=== PATIENT | female | born 1975 | race Caucasian/White ===

== ENCOUNTER 2018-05-21 18:54 | Emergency (ER) | payer OTHER ==
[~2018-05-21] VITALS: Ht 152.4 cm; Wt 113.4 kg
[~2018-05-21 18:54] MED LIST: IBUPROFEN800 MG PO; LASIX20 MG PO; METFORMIN HCL500 MG; NORVASC5 MG; ULTRAM50 MG PO; ZESTRIL10 M1 PO; ZITHROMAX TRI-500 MG PO
[2018-05-21] MEDS ORDERED: JANUVIA50 MG (19:29)
[2018-05-21] MEDS ORDERED: PROMETHAZINE W473 ML PO (22:53)
[2018-05-21] MEDS ORDERED: TESSALON PERLE100 M1 PO (22:53)
[2018-05-21] MEDS ORDERED: ZITHROMAX500 MG PO (22:53)
== END 2018-05-21 23:51 | disposition home or self-care (01) ==
LOC: ER 18:54
DX: J40 Bronchitis, not specified as acute or chronic (principal)

== ENCOUNTER → 2018-05-31 | Emergency (ER) | payer OTHER ==
[~2018-05-31] VITALS: Ht 157.5 cm; Wt 126.6 kg
[~2018-05-31] MED LIST changes: +JANUVIA50 MG; +PROMETHAZINE W473 ML PO; +TESSALON PERLE100 M1 PO; +ZITHROMAX500 MG PO
== END | disposition home or self-care (01) ==
LOC: ER 17:51
DX: N75.8 Other diseases of Bartholin's gland (principal)

== ENCOUNTER 2018-07-16 19:56 | Emergency (ER) | payer OTHER ==
[~2018-07-16] VITALS: Ht 157.5 cm; Wt 127.0 kg
[2018-07-16] MEDS ORDERED: GLIMEPIRIDE2 MG (20:37)
== END 2018-07-16 21:37 | disposition home or self-care (01) ==
LOC: ER 19:56
DX: S80.02XA Contusion of left knee, initial encounter (principal); W18.39XA Other fall on same level, initial encounter; Y93.89 Activity, other specified; Y92.098 Other place in other non-institutional residence as the place of occurrence of the external cause; Y99.8 Other external cause status

== ENCOUNTER 2018-11-16 15:58 | Emergency (ER) | payer OTHER ==
[~2018-11-16] VITALS: Ht 157.5 cm; Wt 127.0 kg
[~2018-11-16 15:58] MED LIST changes: +GLIMEPIRIDE2 MG
[2018-11-16] MEDS ORDERED: XIGDUO XR 5 MG1 EACH (16:14)
== END 2018-11-16 23:01 | disposition home or self-care (01) ==
LOC: ER 15:58
DX: K80.20 Calculus of gallbladder without cholecystitis without obstruction (principal); R10.11 Right upper quadrant pain

== ENCOUNTER 2018-12-15 16:08 | Emergency (ER) | payer OTHER ==
[~2018-12-15] VITALS: Ht 157.5 cm; Wt 126.1 kg
[~2018-12-15 16:08] MED LIST changes: +XIGDUO XR 5 MG1 EACH
== END 2018-12-15 20:12 | disposition home or self-care (01) ==
LOC: ER 16:08
DX: R05 Cough (principal)

== ENCOUNTER 2019-10-26 16:17 | Emergency (ER) | payer OTHER ==
[~2019-10-26] VITALS: Ht 157.5 cm; Wt 136.1 kg
== END 2019-10-26 17:13 | disposition home or self-care (01) ==
LOC: ER 16:17
DX: S61.422A Laceration with foreign body of left hand, initial encounter (principal); W26.0XXA Contact with knife, initial encounter; Y93.G3 Activity, cooking and baking; Y92.090 Kitchen in other non-institutional residence as the place of occurrence of the external cause; Y99.8 Other external cause status

== ENCOUNTER 2020-06-30 05:45 | Emergency (ER) | payer OTHER ==
[~2020-06-30] VITALS: Ht 157.5 cm; Wt 119.7 kg
[2020-06-30] MEDS ORDERED: JANUMET XR 50-1 EACH (05:59)
[2020-06-30] MEDS ORDERED: ZESTRIL10 M1 (05:59)
[2020-06-30] MEDS ORDERED: ZOCOR20 MG (05:59)
== END 2020-06-30 16:23 | disposition home or self-care (01) ==
LOC: ER 05:45
DX: R10.13 Epigastric pain (principal); R51.9 Headache, unspecified; Z03.818 Encounter for observation for suspected exposure to other biological agents ruled out

== ENCOUNTER 2021-01-18 18:30 | Inpatient (IN) | payer OTHER ==
[~2021-01-18] VITALS: Ht 157.5 cm; Wt 95.3 kg
[~2021-01-18 18:30] MED LIST changes: +JANUMET XR 50-1 EACH; +ZESTRIL10 M1; +ZOCOR20 MG
[2021-01-25] MEDS ORDERED: ULTRACET PO (08:24)
[2021-01-25] MEDS ORDERED: AMOX1TAB5 PO (08:24)
== END 2021-01-25 15:06 | disposition home or self-care (01) | DRG 419 ==
LOC: ER 18:30 → SURH 01-19 13:01 → SEC-K 01-19 13:01 → O/R 01-19 13:01 → SURH 01-20 20:49
PROVIDERS: ADMIT Surgery; ATTEND Surgery
PROC: BW2110Z Computerized Tomography (CT Scan) of Abdomen and Pelvis using Low Osmolar Contrast, Unenhanced and Enhanced (ICD-10-PCS; 2021-01-19)
PROC: BW40ZZZ Ultrasonography of Abdomen (ICD-10-PCS; 2021-01-19)
PROC: 0FT44ZZ Resection of Gallbladder, Percutaneous Endoscopic Approach (ICD-10-PCS; principal; 2021-01-20 15:15)
PROC: 3E0F7GC Introduction of Other Therapeutic Substance into Respiratory Tract, Via Natural or Artificial Opening (ICD-10-PCS; 2021-01-21)
DX: K80.00 Calculus of gallbladder with acute cholecystitis without obstruction (principal); E11.9 Type 2 diabetes mellitus without complications; E66.01 Morbid (severe) obesity due to excess calories; Z20.822 Contact with and (suspected) exposure to COVID-19

== ENCOUNTER 2021-07-26 04:07 | Emergency (ER) | payer OTHER ==
[~2021-07-26] VITALS: Ht 157.5 cm; Wt 93.0 kg
[~2021-07-26 04:07] MED LIST changes: +AMOX1TAB5 PO; +ULTRACET PO
[2021-07-26] MEDS ORDERED: ENALAPRIL MALEA10 MG (04:16)
[2021-07-26] MEDS ORDERED: GENTAK5 ML OP (05:10)
[2021-07-26] MEDS ORDERED: CLEAR EYES REDNE6 ML OP (05:10)
== END 2021-07-26 05:17 ==
LOC: ER 04:07
DX: H18.829 Corneal disorder due to contact lens, unspecified eye (principal)

== ENCOUNTER 2021-08-16 16:26 | Emergency (ER) | payer OTHER ==
[~2021-08-16] VITALS: Ht 157.5 cm; Wt 92.1 kg
[~2021-08-16 16:26] MED LIST changes: +CLEAR EYES REDNE6 ML OP; +ENALAPRIL MALEA10 MG; +GENTAK5 ML OP
[2021-08-16] MEDS ORDERED: JANUMET 50-1,01 EACH PO (16:42)
[2021-08-16] MEDS ORDERED: CLEOCIN HCL300 MG PO (20:31)
== END 2021-08-16 21:22 | disposition home or self-care (01) ==
LOC: ER 16:26
DX: S80.862A Insect bite (nonvenomous), left lower leg, initial encounter (principal); S80.861A Insect bite (nonvenomous), right lower leg, initial encounter

== ENCOUNTER → 2022-04-26 | Emergency (ER) | payer OTHER ==
[~2022-04-26] VITALS: Ht 157.5 cm; Wt 94.3 kg
[~2022-04-26] MED LIST changes: +CLEOCIN HCL300 MG PO; +DICLOFENAC SODI75 MG PO; +JANUMET 50-1,01 EACH PO; +LEVSIN/SL0.125 MG SL; +PEPCID AC20 MG PO
== END | disposition home or self-care (01) ==
LOC: ER 19:35
DX: R10.31 Right lower quadrant pain (principal); E11.9 Type 2 diabetes mellitus without complications; Z79.84 Long term (current) use of oral hypoglycemic drugs; I10 Essential (primary) hypertension; Z88.2 Allergy status to sulfonamides

== ENCOUNTER 2022-07-19 10:44 | Emergency (ER) | payer OTHER ==
[~2022-07-19] VITALS: Ht 157.5 cm; Wt 95.3 kg
[2022-07-19] MEDS ORDERED: ZESTRIL20 MG (11:11)
== END 2022-07-19 15:10 | disposition home or self-care (01) ==
LOC: ER 10:44
DX: R05.9 Cough, unspecified (principal)

== ENCOUNTER 2022-08-30 15:22 | Emergency (ER) | payer OTHER ==
[~2022-08-30] VITALS: Ht 157.5 cm; Wt 95.3 kg
[~2022-08-30 15:22] MED LIST changes: +ZESTRIL20 MG
[2022-08-30] MEDS ORDERED: JANUMET 50-5001 EACH PO (16:04)
[2022-08-30] MEDS ORDERED: BUTALBIT-ACETA1 EACH PO (19:02)
== END 2022-08-30 20:15 | disposition home or self-care (01) ==
LOC: ER 15:22
DX: R53.81 Other malaise (principal); G44.89 Other headache syndrome; H57.12 Ocular pain, left eye; E13.69 Other specified diabetes mellitus with other specified complication; I10 Essential (primary) hypertension

== ENCOUNTER 2022-11-20 19:17 | Emergency (ER) | payer OTHER ==
[~2022-11-20] VITALS: Ht 157.5 cm; Wt 95.3 kg
[~2022-11-20 19:17] MED LIST changes: +BUTALBIT-ACETA1 EACH PO; +JANUMET 50-5001 EACH PO
== END 2022-11-20 23:17 | disposition home or self-care (01) ==
LOC: ER 19:17
DX: J45.901 Unspecified asthma with (acute) exacerbation (principal)

== ENCOUNTER 2022-12-12 12:55 | Emergency (ER) | payer OTHER ==
[~2022-12-12] VITALS: Ht 157.5 cm; Wt 95.3 kg
[2022-12-12] MEDS ORDERED: ZITHROMAX500 MG PO (14:24)
[2022-12-12] MEDS ORDERED: ALLERGY RELIE15.8 ML NASAL (14:24)
[2022-12-12] MEDS ORDERED: TUSNEL LIQUID178 ML PO (14:24)
== END 2022-12-12 15:06 | disposition home or self-care (01) ==
LOC: ER 12:55
DX: B34.8 Other viral infections of unspecified site (principal); Z20.822 Contact with and (suspected) exposure to COVID-19

== ENCOUNTER 2023-06-20 13:30 | Emergency (ER) | payer OTHER ==
[~2023-06-20] VITALS: Ht 157.5 cm; Wt 90.7 kg
[~2023-06-20 13:30] MED LIST changes: +ALLERGY RELIE15.8 ML NASAL; +TUSNEL LIQUID178 ML PO
[2023-06-20 16:53] LABS: HEMATOCRIT 43.8 % (36.0-45.00); HEMOGLOBIN 14.5 g/dL (12.0-15.00); MEAN CELL VOLUME 86.5 fL (80.00-100.00); MEAN CORPUSCULAR HEMOGLOBIN 28.6 pg (27.00-32.0); MEAN CORPUSCULAR HGB CONC 33.1 g/dl (32.0-36.0); PLATELET COUNT 257 K/uL (150-450); RED BLOOD COUNT 5.07 M/uL (4.00-6.00); RED CELL DISTRIBUTION WIDTH 14.8 % (11.5-14.5)
[2023-06-20] MEDS ORDERED: IPRATROPIU0.2 MG/1 M IH (18:07)
[2023-06-20] MEDS ORDERED: SINGULAIR10 MG PO (18:07)
[2023-06-20] MEDS ORDERED: DIABETIC TUSSI118 M3 PO (18:07)
== END 2023-06-20 18:25 | disposition home or self-care (01) ==
LOC: ER 13:31
PROVIDERS: Nurse Practitioner Family
DX: J00 Acute nasopharyngitis [common cold] (principal); J45.901 Unspecified asthma with (acute) exacerbation; Z20.822 Contact with and (suspected) exposure to COVID-19